=== PATIENT | female | born 1930 | race American Indian/Alaskan Native ===

== ENCOUNTER 2017-09-27 15:06 | Emergency (ER) | payer MEDICARE ==
[2017-09-27 17:03] LABS: Calcium 9.3 mg/dL (8.4-10.2)
[2017-09-27 17:05] LABS: Bilirubin,Urine NEG (Negative)
[2017-09-27 17:06] LABS: Blood,Urine NEG (Negative); Protein,Urine <15 mg/dL mg/dL (Negative); RBC,Urine < 1.0 /HPF (0.0-6.0); Urobilinogen,Urine < 2.0 mg/dL (<2.0); WBC,Urine < 1.0 /HPF (0.0-6.0)
[2017-09-27 17:10] LABS: Color,Urine Colorless (Yellow)
--- NOTE | 2017-09-27 17:15 | Emergency Department Report ---
ED General Adult HPI - General Chief complaint: Hypoglycemia Stated complaint: HYPOGLYCEMIA Time Seen by Provider: 09/27/17 17:04 Source: patient, EMS Mode of arrival: Stretcher Limitations: No Limitations - History of Present Illness Initial comments: Ms. Escobar is a 87 years old female with past medical history of diabetes and hypertension, patient presented to the ER via EMS after patient was found on the floor week and with a blood sugar of 27. Patient stated that she took her insulin but she did not eat. Patient received oral glucose in route and she received a meal tray in the ER and patient now is alert oriented 3 and she stated that she does not have any complaints today. Patient is specifically deny headache weakness, numbness, tinglingsensation no bowel or bladder incontinence. Patient denied chest pain, shortness of breath, nausea or vomiting. - Related Data Home Medications Medication Instructions Recorded Confirmed Last Taken Alendronate Sodium 35 mg PO 1XW #0 12/18/16 03/31/17 03/30/17 Carvedilol [Coreg] 25 mg PO BID #0 12/18/16 03/31/17 Unknown Donepezil [Aricept] 10 mg PO DAILY #0 12/18/16 03/31/17 Unknown Ergocalciferol [Vitamin D2] 1.25 mg PO 1XW #0 12/18/16 03/31/17 03/30/17 Potassium Chloride [Klor-Con 10] 20 meq PO BID #0 12/18/16 03/31/17 Unknown Simvastatin [Zocor TAB] 40 mg PO QHS #0 12/18/16 03/31/17 Unknown Insulin Glargine [Lantus VIAL] 15 units SC BID 03/31/17 04/01/17 Unknown Oxybutynin Chloride [Oxybutynin 10 mg PO QDAY 03/31/17 03/31/17 Unknown Chloride ER] Previous Rx's Medication Instructions Recorded Last Taken Type Ciprofloxacin HCl [Ciprofloxacin 500 mg PO Q12H #6 tab 04/02/17 Unknown Rx TAB] Furosemide [Lasix] 20 mg PO QDAY #30 tablet 04/02/17 Unknown Rx HYDROcodone/APAP 5-325 [Spencer 1 tab PO PRN PRN #7 tablet 04/02/17 Unknown Rx 5-325 mg TAB] Allergies Allergy/AdvReac Type Severity Reaction Status Date / Time No Known Allergies Allergy Verified 03/31/17 20:28 ED Review of Systems ROS: Stated complaint: HYPOGLYCEMIA Other details as noted in HPI Comment: All other systems reviewed and negative Constitutional: denies: chills, fever Respiratory: denies: cough, orthopnea, shortness of breath, SOB with exertion, SOB at rest, wheezing Cardiovascular: denies: chest pain, palpitations, dyspnea on exertion Gastrointestinal: denies: abdominal pain, nausea, vomiting, diarrhea, constipation, hematemesis Genitourinary: denies: urgency, dysuria, frequency, hematuria Skin: denies: rash, lesions Neurological: denies: headache, weakness, numbness, paresthesias ED Past Medical Hx - Past Medical History Hx Hypertension: Yes Hx Diabetes: Yes Hx Deep Vein Thrombosis: No Hx Arthritis: Yes Hx Seizures: No Hx Dementia: No Additional medical history: HIGH CHOLESTEROL, glaucoma - Surgical History Additional Surgical History: HYSTERECTOMY / BACK - Social History Smoking Status: Never Smoker Substance Use Type: None - Medications Home Medications: Home Medications Medication Instructions Recorded Confirmed Last Taken Type Alendronate Sodium 35 mg PO 1XW #0 12/18/16 03/31/17 03/30/17 History Carvedilol [Coreg] 25 mg PO BID #0 12/18/16 03/31/17 Unknown History Donepezil [Aricept] 10 mg PO DAILY #0 12/18/16 03/31/17 Unknown History Ergocalciferol [Vitamin D2] 1.25 mg PO 1XW #0 12/18/16 03/31/17 03/30/17 History Potassium Chloride [Klor-Con 10] 20 meq PO BID #0 12/18/16 03/31/17 Unknown History Simvastatin [Zocor TAB] 40 mg PO QHS #0 12/18/16 03/31/17 Unknown History Insulin Glargine [Lantus VIAL] 15 units SC BID 03/31/17 04/01/17 Unknown History Oxybutynin Chloride [Oxybutynin 10 mg PO QDAY 03/31/17 03/31/17 Unknown History Chloride ER] Ciprofloxacin HCl [Ciprofloxacin 500 mg PO Q12H #6 tab 04/02/17 Unknown Rx TAB] Furosemide [Lasix] 20 mg PO QDAY #30 tablet 04/02/17 Unknown Rx HYDROcodone/APAP 5-325 [Spencer 1 tab PO PRN PRN #7 tablet 04/02/17 Unknown Rx 5-325 mg TAB] ED Physical Exam - General Limitations: No Limitations General appearance: alert, in no apparent distress - Head Head exam: Present: atraumatic, normocephalic, normal inspection - Eye Eye exam: Present: normal appearance, PERRL - ENT ENT exam: Present: normal exam, normal orophraynx, mucous membranes moist - Neck Neck exam: Present: normal inspection, full ROM. Absent: tenderness, meningismus, lymphadenopathy - Respiratory Respiratory exam: Present: normal lung sounds bilaterally. Absent: respiratory distress, wheezes, rales, rhonchi, stridor, chest wall tenderness, accessory muscle use, decreased breath sounds, prolonged expiratory - Cardiovascular Cardiovascular Exam: Present: regular rate, normal rhythm, normal heart sounds - GI/Abdominal GI/Abdominal exam: Present: soft, normal bowel sounds. Absent: distended, tenderness, guarding, rebound, rigid, organomegaly, mass, bruit, pulsatile mass , hernia - Extremities Exam Extremities exam: Present: normal inspection, full ROM, normal capillary refill - Back Exam Back exam: Present: normal inspection, full ROM. Absent: tenderness, CVA tenderness (R), CVA tenderness (L), muscle spasm, paraspinal tenderness, vertebral tenderness, rash noted - Neurological Exam Neurological exam: Present: alert, oriented X3, CN II-XII intact, normal gait, reflexes normal. Absent: motor sensory deficit - Psychiatric Psychiatric exam: Present: normal affect, normal mood. Absent: depressed, agitated, anxious, flat affect, manic, homicidal ideation, suicidal ideation - Skin Skin exam: Present: warm, intact, normal color. Absent: cyanosis, diaphoretic, erythema ED Course Vital Signs 09/27/17 09/27/17 09/27/17 15:46 17:59 19:00 Temperature 97.8 F Pulse Rate 73 58 L Respiratory 18 18 16 Rate Blood Pressure 185/113 Blood Pressure 139/46 [Left] O2 Sat by Pulse 99 99 99 Oximetry - Reevaluation(s) Reevaluation #1: 09/27/17 18:27 Patient is alert oriented 3 in no acute distress. Blood glucose is 200. Reevaluation #2: 09/27/17 19:33 Patient is alert, oriented 3 patient stated that she is fine and she does not have any complaint at this moment. Patient to be discharged home with her daughter and to follow up with her primary care physician in the next 2-3 days ED Medical Decision Making - Lab Data Result diagrams: 09/27/17 17:12 09/27/17 16:11 Critical care attestation.: If time is entered above; I have spent that time in minutes in the direct care of this critically ill patient, excluding procedure time. ED Disposition Clinical Impression: Hypoglycemia due to insulin Disposition: DC-01 TO HOME OR SELFCARE Is pt being admited?: No Condition: Stable Instructions: Diabetic Hypoglycemia (ED) Referrals: PRIMARY CARE, [Primary Care Provider] - 3-5 Days
[2017-09-27 17:28] LABS: Hematocrit 37.6 % (30.3-42.9); Hemoglobin 12.4 gm/dl (10.1-14.3); Mean Corpuscular HGB Conc 33 % (30-34); Mean Corpuscular Hemoglobin 28 pg (28-32); Mean Corpuscular Volume 86 fl (79-97); Platelet Count 126 K/mm3 (140-440); Red Blood Count 4.39 M/mm3 (3.65-5.03); Red Cell Distribution Width 13.9 % (13.2-15.2)
[2017-09-27 17:56] LABS: Basophils # (Auto) 0.1 K/mm3 (0.0-0.1); Basophils % (Auto) 0.7 % (0.0-1.8); Eosinophils % (Auto) 0.4 % (0.0-4.3); Lymphocytes # (Auto) 1.5 K/mm3 (1.2-5.4); Lymphocytes % (Auto) 14.8 % (13.4-35.0); Monocytes # (Auto) 0.5 K/mm3 (0.0-0.8); Monocytes % (Auto) 5.2 % (0.0-7.3)
[2017-09-27 20:08] VITALS: BP 139/46
== END 2017-09-27 20:13 | disposition home or self-care (01) ==
LOC: ED 15:06
DX: E11.649 Type 2 diabetes mellitus with hypoglycemia without coma (principal); I10 Essential (primary) hypertension; M19.90 Unspecified osteoarthritis, unspecified site; E78.00 Pure hypercholesterolemia, unspecified; H40.9 Unspecified glaucoma; Z90.710 Acquired absence of both cervix and uterus; Z79.4 Long term (current) use of insulin
CPT/HCPCS: 36415; 80048; 81001; 82962; 84484; 85025; 93005; 93010

== ENCOUNTER 2017-12-18 09:29 | Emergency (ER) | payer MEDICARE ==
[2017-12-18 11:17] VITALS: BP 214/102
[2017-12-18] MEDS ORDERED: NACL 0.9% 1000 ML 1,000 ML IV ONE (11:55)
[2017-12-18] MEDS ORDERED: TYLENOL PO ONE (12:05)
[2017-12-18 12:28] LABS: Basophils # (Auto) 0.1 K/mm3 (0.0-0.1); Basophils % (Auto) 0.6 % (0.0-1.8); Eosinophils % (Auto) 0.1 % (0.0-4.3); Hematocrit 41.9 % (30.3-42.9); Hemoglobin 13.8 gm/dl (10.1-14.3); Lymphocytes # (Auto) 1.1 K/mm3 (1.2-5.4); Mean Corpuscular HGB Conc 33 % (30-34); Mean Corpuscular Hemoglobin 29 pg (28-32); Mean Corpuscular Volume 88 fl (79-97); Monocytes # (Auto) 0.3 K/mm3 (0.0-0.8); Monocytes % (Auto) 3.1 % (0.0-7.3); Platelet Count 106 K/mm3 (140-440); Red Blood Count 4.77 M/mm3 (3.65-5.03); Red Cell Distribution Width 13.1 % (13.2-15.2)
--- NOTE | 2017-12-18 12:33 | Emergency Department Report ---
HPI - General Chief Complaint: Altered Mental Status Time Seen by Provider: 12/18/17 11:50 - HPI HPI: The patient is a 87-year-old female who presents for evaluation after being found down on the ground this morning. Per the patient her daughter, the patient fell at home sometime in the middle of the night, and was unable to get up. She complains of constant mild achy headache, mild aching left shoulder and right knee pain since her fall, exacerbated with movement of the left shoulder or right knee. The patient denies neck pain, chest pain, abdominal pain, back pain, pain to the hips or other joints, nausea, vomiting, paresthesias, motor weakness, seizure-like activity, or other focal neurological deficit. ED Past Medical Hx - Past Medical History Hx Hypertension: Yes Hx Diabetes: Yes Hx Deep Vein Thrombosis: No Hx Arthritis: Yes Hx Seizures: No Hx Dementia: No Additional medical history: HIGH CHOLESTEROL, glaucoma - Surgical History Additional Surgical History: HYSTERECTOMY / BACK - Social History Smoking Status: Never Smoker Substance Use Type: None - Medications Home Medications: Home Medications Medication Instructions Recorded Confirmed Last Taken Type Alendronate Sodium 35 mg PO 1XW #0 12/18/16 03/31/17 03/30/17 History Carvedilol [Coreg] 25 mg PO BID #0 12/18/16 03/31/17 Unknown History Donepezil [Aricept] 10 mg PO DAILY #0 12/18/16 03/31/17 Unknown History Ergocalciferol [Vitamin D2] 1.25 mg PO 1XW #0 12/18/16 03/31/17 03/30/17 History Potassium Chloride [Klor-Con 10] 20 meq PO BID #0 12/18/16 03/31/17 Unknown History Simvastatin [Zocor TAB] 40 mg PO QHS #0 12/18/16 03/31/17 Unknown History Insulin Glargine [Lantus VIAL] 15 units SC BID 03/31/17 04/01/17 Unknown History Oxybutynin Chloride [Oxybutynin 10 mg PO QDAY 03/31/17 03/31/17 Unknown History Chloride ER] Ciprofloxacin HCl [Ciprofloxacin 500 mg PO Q12H #6 tab 04/02/17 Unknown Rx TAB] Furosemide [Lasix] 20 mg PO QDAY #30 tablet 04/02/17 Unknown Rx HYDROcodone/APAP 5-325 [Grubbs 1 tab PO PRN PRN #7 tablet 04/02/17 Unknown Rx 5-325 mg TAB] ED Review of Systems ROS: Stated complaint: AMS Other details as noted in HPI Constitutional: denies: fever ENT: denies: throat or neck pain Respiratory: denies: cough, shortness of breath Cardiovascular: denies: chest pain Endocrine: denies unexplained weight loss or gain Gastrointestinal: denies: abdominal pain, nausea Genitourinary: denies: dysuria Musculoskeletal: reports headache denies: leg swelling Skin: denies: rash Neurological: denies: headache Hematological/Lymphatic: denies: easy bleeding or easy bruising Psych: denies sadness or hopelessness Physical Exam - Physical Exam Vital Signs: Vital Signs 12/18/17 12/18/17 12/18/17 09:52 09:55 10:00 Pulse Rate 46 L 47 L 49 L Respiratory 15 23 16 Rate Blood Pressure 196/139 O2 Sat by Pulse Oximetry 12/18/17 12/18/17 12/18/17 10:05 10:11 10:15 Pulse Rate 47 L 34 L 37 L Respiratory 11 L 13 13 Rate Blood Pressure 196/139 196/139 196/139 O2 Sat by Pulse Oximetry 12/18/17 12/18/17 12/18/17 10:21 10:25 10:31 Pulse Rate 33 L 40 L 47 L Respiratory 11 L 14 13 Rate Blood Pressure 160/123 160/123 160/123 O2 Sat by Pulse Oximetry 12/18/17 12/18/17 12/18/17 10:35 10:38 10:41 Pulse Rate 47 L 42 L 44 L Respiratory 19 16 13 Rate Blood Pressure 160/123 146/75 160/123 O2 Sat by Pulse 95 Oximetry 12/18/17 12/18/17 12/18/17 10:45 10:51 10:55 Pulse Rate 45 L 45 L 45 L Respiratory 16 17 11 L Rate Blood Pressure 160/123 160/123 160/123 O2 Sat by Pulse Oximetry 12/18/17 12/18/17 11:01 11:05 Pulse Rate 50 L 53 L Respiratory 15 20 Rate Blood Pressure 160/123 214/102 O2 Sat by Pulse Oximetry Physical Exam: General: well-nourished, well-developed, no acute distress Head: Normocephalic, small area of ecchymosis present to the left forehead and left midface, no significant swelling or obvious deformity Eyes: normal sclera ENT: Mucous membranes are pale and dry Neck: trachea midline, neck supple, No neck stiffness, no cervical adenopathy, no midline cervical spine tenderness Respiratory: Breath sounds equal bilaterally, no wheezing, rales, or rhonchi Cardio: S1 and S2 present, no murmurs, rubs, gallops, capillary refill is delayed Abdomen: Normoactive bowel sounds, soft abdomen, no tenderness Chest WALL/Back: No tenderness to palpation of the chest wall, no CVA tenderness with percussion, no midline thoracic or lumbar tenderness overlying the spinous process Musc: No pitting edema of the legs, right knee lateral joint line tenderness to palpation present, negative Miguel Ángel's, posterior drawer sign negative, no redness, swelling, warmth, or crepitus to the knee, left shoulder tenderness overlying the acromial clavicular joint is present, no obvious deformity, full passive range of motion at the left shoulder intact, sensation, motor deficit, and intact pulses present in the distal left arm and right lower leg Skin: No rash Neuro: alert oriented x4, normal cognition, speech normal, PERRL, EOM intact, no facial drooping, no uvula or tongue deviation on protrusion, no deficit with rotation of neck or shoulder shrug, no obvious gross motor deficit in the upper or lower extremities with flexion or extension at the shoulder, elbow, wrist, hip, knee, or ankle bilaterally, no obvious gross sensation deficit to crude touch or 2 pt discrimination, 2+ symmetric reflexes on DTR testing, no coordination deficit with [id number] or [id number] testing, Babinski downgoing, romberg negative, patient able to to ambulate without abnormal gait Psych: Normal affect ED Course Vital Signs 12/18/17 12/18/17 12/18/17 09:52 09:55 10:00 Pulse Rate 46 L 47 L 49 L Respiratory 15 23 16 Rate Blood Pressure 196/139 O2 Sat by Pulse Oximetry 12/18/17 12/18/17 12/18/17 10:05 10:11 10:15 Pulse Rate 47 L 34 L 37 L Respiratory 11 L 13 13 Rate Blood Pressure 196/139 196/139 196/139 O2 Sat by Pulse Oximetry 12/18/17 12/18/17 12/18/17 10:21 10:25 10:31 Pulse Rate 33 L 40 L 47 L Respiratory 11 L 14 13 Rate Blood Pressure 160/123 160/123 160/123 O2 Sat by Pulse Oximetry 12/18/17 12/18/17 12/18/17 10:35 10:38 10:41 Pulse Rate 47 L 42 L 44 L Respiratory 19 16 13 Rate Blood Pressure 160/123 146/75 160/123 O2 Sat by Pulse 95 Oximetry 12/18/17 12/18/17 12/18/17 10:45 10:51 10:55 Pulse Rate 45 L 45 L 45 L Respiratory 16 17 11 L Rate Blood Pressure 160/123 160/123 160/123 O2 Sat by Pulse Oximetry 12/18/17 12/18/17 11:01 11:05 Pulse Rate 50 L 53 L Respiratory 15 20 Rate Blood Pressure 160/123 214/102 O2 Sat by Pulse Oximetry ED Medical Decision Making - Lab Data Result diagrams: 12/18/17 12:10 12/18/17 12:18 - Medical Decision Making The patient was seen and examined by myself. The patient is placed on a personnel monitor and continuous pulse ox. On initial evaluation, the patient was found to be in no distress. Evaluation orders were placed. The patient was offered Tylenol for her pain and she declined. Lab results are grossly unremarkable. CT scan the head and facial bones was negative for acute injury or hemorrhage. X-rays of the left shoulder and right tib-fib are unremarkable as well. On reexamination the patient's blood pressure was found to decrease outside of range concerning for hypertensive emergency, and the patient states that she feels back to her normal baseline without any pain whatsoever. The patient is stable for discharge with outpatient follow-up. The patient is given follow-up and return instructions. The patient expressed understanding and agreed with the plan. The patient is discharged in stable condition. Critical care attestation.: If time is entered above; I have spent that time in minutes in the direct care of this critically ill patient, excluding procedure time. ED Disposition Clinical Impression: Hypertensive urgency, Acute pain of left shoulder due to trauma, Pain of right knee and lower leg, Dehydration Facial abrasion Qualifiers: Encounter type: initial encounter Qualified Code(s): S00.81XA - Abrasion of other part of head, initial encounter Disposition: DC-01 TO HOME OR SELFCARE Is pt being admited?: No Does the pt Need Aspirin: No Condition: Stable Instructions: Dehydration (ED), Fall Prevention for Older Adults (ED), Chronic Hypertension (ED), Arthralgia (ED) Referrals: PRIMARY CAREMD [Primary Care Provider] - 3-5 Days GAIL REED MD [Staff Physician] - 3-5 Days Time of Disposition: 13:06
[2017-12-18 12:45] LABS: Albumin 3.5 g/dL (3.9-5); Calcium 9.3 mg/dL (8.4-10.2)
--- NOTE | 2017-12-18 12:57 | Cat Scan Report ---
FINAL REPORT EXAM: CT HEAD/BRAIN WO CON HISTORY: headache, left midface and forehead trauma and bruising TECHNIQUE: CT examination of the head without IV contrast PRIORS: 12/17/2016 FINDINGS: Left forehead scalp swelling. Adjacent bone is intact. Atherosclerotic calcification in the ICA bilaterally at the level of the siphon. No acute air-fluid level visualized in the included air-filled sinuses. Bone windows demonstrate no acute fracture. There is ventricular and sulcal prominence compatible with global cerebrocortical atrophy. The brain contains no mass, mass effect, hemorrhage, or acute infarct. There is no extra-axial intracranial bleed, brain bleed, or midline shift. IMPRESSION: No acute CVA, intracranial bleed, or brain mass
[2017-12-18] MEDS ORDERED: APRESOLINE IV ONE (13:04)
--- NOTE | 2017-12-18 13:07 | Cat Scan Report ---
FINAL REPORT EXAM: CT FACIAL BONES WO CON HISTORY: left midface/forehead trauma and bruising TECHNIQUE: CT examination of the maxillofacial region without IV contrast PRIORS: None. FINDINGS: Left forehead scalp swelling. Adjacent bones are intact. The ocular globes are intact as are the retrobulbar soft tissues. The visualized orbit boothe are intact. Bone windows reveal no evidence of acute fracture. The paranasal sinuses are without fluid level to suggest hemorrhage. The included mastoid air cells and middle ear cavities are clear. IMPRESSION: No acute skeletal pathology
--- NOTE | 2017-12-18 13:12 | XRay Report ---
RIGHT TIBIA/FIBULA: History: Pain Mild osteopenia is evident. There is no evidence for fracture, bone lesion or bony destruction. Moderate degenerative changes are noted at the right knee. There is mild diffuse subcutaneous edema. IMPRESSION: Chronic findings as described. No acute process noted.
--- NOTE | 2017-12-18 13:51 | XRay Report ---
LEFT SHOULDER, 3 views: History: Left shoulder pain. Osteopenia is evident. No evidence for fracture, dislocation or ligamentous injury. No significant degenerative changes. The soft tissues are unremarkable. IMPRESSION: Osteopenia. Otherwise, unremarkable exam.
== END 2017-12-18 15:13 | disposition home or self-care (01) ==
LOC: ED 09:29
DX: S00.81XA Abrasion of other part of head, initial encounter (principal); I10 Essential (primary) hypertension; M25.512 Pain in left shoulder; M25.561 Pain in right knee; E86.0 Dehydration; E11.9 Type 2 diabetes mellitus without complications; X58.XXXA Exposure to other specified factors, initial encounter; Y93.89 Activity, other specified; Y92.89 Other specified places as the place of occurrence of the external cause; Y99.8 Other external cause status
CPT/HCPCS: 36415; 70450; 70486; 80053; 82550; 82805; 82962; 83880; 85025; 93005; 93010